=== PATIENT | male | born 1945 | race Native Hawaiian/Other Pacific Islander ===

== ENCOUNTER 2020-05-05 09:37 | Outpatient (CLI) | payer OTHER | END 2020-05-05 19:37 | disposition home or self-care (01) | LOC: INF 09:37 | PROVIDERS: ATTEND Internal Medicine | DX: Z23 Encounter for immunization (principal) ==

== ENCOUNTER 2020-06-02 07:35 | Outpatient (CLI) | payer OTHER | END 2020-06-02 19:19 | disposition home or self-care (01) | LOC: INF 07:35 | PROVIDERS: ATTEND Internal Medicine | DX: Z23 Encounter for immunization (principal) | CPT/HCPCS: 96372 ==